=== PATIENT | female | born 1995 | race Caucasian/White ===

== ENCOUNTER 2016-09-25 17:44 | Emergency (ER) | payer SELFPAY ==
[2016-09-25 18:11] VITALS: BP 131/73
--- NOTE | 2016-09-25 19:20 | ERNOTE ---
ENT HPI Date of Service: 09/25/16 Presenting Symptoms: other - sore throat Time Seen by Provider: 09/25/16 18:56 Source: patient Exam Limitations: no limitations - Immun/Allergies/Home Medications Immunizations: IMMUNIZATION HX Immunizations Up to Date Yes History of Influenza Vaccine Yes Hx Pneumococcal Vaccination No Allergies/Adverse Reactions: Allergies Allergy/AdvReac Type Severity Reaction Status Date / Time calamine Allergy Verified 09/25/16 18:11 Home Medications: HOME MEDICATIONS Azithromycin [Zithromax] 500 mg PO NOW #6 tab 09/25/16 [Last Taken Unknown] Etonogestrel [Nexplanon] 68 mg SQ DAILY 09/25/16 [Last Taken Unknown] - History of Present Illness Narrative: Patient presents to the ED for sore throat, congestion and ear fullness. She relates that she has been sick for a little over 2 days. Fever. Sent home from work. No trouble breathing. Has not seen anyone else for it. hurts to swallow. No rash. Severity: Present: moderate ENT Location: Present: ear (R), throat Modifying Factors - Improves: Reports: nothing Modifying Factors - Worsens: Reports: nothing Associated Symptoms - ENT: Reports: fever, sore throat, nasal congestion/ drainage. Denies: poor fluid intake, voice change, drooling Prior Treament: Denies: recently seen Review of Systems - Review of Systems Constitutional: Present: fever ENT: Present: sore throat Respiratory: Absent: shortness of breath Cardiology: Absent: chest pain Gastrointestinal/Abdominal: Absent: abdominal pain - Patient's Past Medical History Patient History - Medical: No pertinent hx Patient History - Cardiac/Respiratory: No pertinent hx Patient History - Cancer: No Hx of Cancer Patient History - Surgical Procedures: No surgical history Patient History - Other: None - Social History Living Situations: home Smoking Status: Current every day smoker Alcohol Use: none Drug Use: none - Immunizations Immunizations Up to Date: Yes Hx Pneumococcal Vaccination: No History of Influenza Vaccine: Yes Physical Exam - Physical Exam General Appearance: Present: alert, no apparent distress, other - well hydrated , non-toxic, no distress. Eye Exam: Normal inspection: bilateral, PERRL: bilateral Ears, Nose, Throat: Present: abnormal TM (R), pharyngeal erythema, tonsillar exudate, other - No evidenceof MANAGER ADMINISTRATIVE SERVICES, RPA or epiglottitis.. Absent: pharyngeal swelling, dry mucous membranes Respiratory: Present: no respiratory distress, no accessory muscle use, lungs clear. Absent: respiratory distress Cardiovascular/Chest: Present: regular rate, rhythm Gastrointestinal/Abdominal: Present: normal bowel sounds, nontender, nondistended, soft Back Exam: Present: normal range of motion Extremity Exam: Present: normal inspection Neurological Exam: Present: alert, normal mood/affect, no motor/sensory deficits , head of sales and marketing II-XII nml as tested Skin Exam: Absent: skin rash ED Progress - Results and Orders Patient's Lab Results:: I have reviewed the patient's lab results. - Vital Signs Patient's Vital Signs:: I have reviewed the patient's vital signs. Vital Signs: Vital Signs 09/25/16 18:06 Temperature 36.5 C Pulse Rate 107 H Respiratory 18 Rate Blood Pressure 131/73 O2 Sat by Pulse 100 Oximetry - Progress/Reassessment Chief Complaint: Sore Throat Progress Note-Subjective: 09/25/16 19:17 Right OM by exam. Pharyngitis, non-strep. No MANAGER ADMINISTRATIVE SERVICES, RPA or epiglottitis. Stable , well hydrated, non-toxic, no distress. I discussed warning signs and reasons to return as well as the need for close f/u. Departure Clinical Impression: Otitis media, Pharyngitis - Departure Disposition: Home self-care Condition: Stable Instructions: Sore Throat Additional Instructions: Rest. Fluids. Tylenol, Ibuprofen. Follow-up with primary doctor wednesday for a re-check. Antibiotic as directed. Return for trouble breathing or swallowing or if your condition worsens or changes in any way. Prescriptions: Azithromycin [Zithromax] 500 mg PO NOW #6 tab
== END 2016-09-25 19:32 | disposition home or self-care (01) ==
LOC: ER 17:44
DX: H66.91 Otitis media, unspecified, right ear (principal); J02.9 Acute pharyngitis, unspecified; F17.210 Nicotine dependence, cigarettes, uncomplicated

== ENCOUNTER 2019-06-05 17:32 | Observation (INO) ==
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
[2019-06-05 18:10] LABS: Hematocrit 43.7 % (37.0-47.0); Hemoglobin 14.6 gm/dL (12.5-16.0); Mean Cell Volume 83.6 fl (78-100); Mean Corpuscular Hemoglobin 27.9 pg (27-31); Mean Corpuscular Hgb Conc 33.4 g/dl (32-36); Mean Platelet Volume 9.9 fl (8-12.5); Neutrophil # 3.9 K/mm3 (1.3-6.0); Neutrophil % 45.2 % (42-75.0); Platelet Count 265 K/mm3 (150-450); Red Blood Count 5.23 M/mm3 (4.2-5.4); Red Cell Distribution Width 15.2 % (11.5-14.0); White Blood Count 8.7 K/mm3 (4.0-10.5)
[2019-06-05 18:12] LABS: Urine Bilirubin Negative (NEGATIVE); Urine Blood Negative /ul (NEGATIVE); Urine Ketone Negative (NEGATIVE); Urine Nitrite Negative (NEGATIVE); Urine Protein Negative (NEGATIVE); Urine Specific Gravity <=1.005 SP.GR. (1.005-1.010); Urine Urobilinogen Normal (NORMAL)
[2019-06-05 18:16] LABS: Urine Appearance Clear (CLEAR); Urine Bacteria TRACE; Urine Color Colorless; Urine RBC None Seen /hpf (0-5); Urine WBC None Seen /hpf (0-5)
[2019-06-05 18:18] LABS: Cocaine Ur Negative (NEGATIVE); Urine Barbiturate Negative (NEGATIVE); Urine Benzodiazepines Negative (NEGATIVE); Urine Opiates Negative (NEGATIVE); Urine PCP Negative (NEGATIVE); Urine THC Negative (NEGATIVE)
[2019-06-05 18:27] LABS: ALT 29 U/L (19-67); AST 24 U/L (0-48); Albumin * 4.1 gm/dl (3.4-5.0); Alkaline Phosphatase * 110 U/L (50-170); Anion Gap 19.5 mmol/L (6.8-13.8); BUN/Creatinine Ratio 10.1 (9.0-21.6); Bilirubin, Total 0.5 mg/dL (0.0-1.1); Blood Urea Nitrogen 8 mg/dL (3-23); Carbon Dioxide 20.3 mmol/L (24-32.6); Chloride 107 mmol/L (97-106); Glucose * 118 mg/dL (70-110); Potassium 2.8 mmol/L (3.4-4.6); Salicylate 3.5 mg/dL (2.8-20.0); Sodium 144 mmol/L (132-142); Total Protein 8.2 gm/dL (6.2-8.2)
[2019-06-05 18:37] LABS: Ca. Corrected For Albumin 8.3 mg/dL (8.4-10.2); Calcium * 8.7 mg/dL (7.9-10.9)
[2019-06-05] MEDS ORDERED: LORazepam 2 MG/ML DISP.SYRIN IV ONE (19:01)
[2019-06-05] MEDS ORDERED: ONDANSETRON HCL/PF 2 MG/ML VIAL IV ONE (19:45)
[2019-06-05] MEDS: MULTIVIT INFUSN,ADULT 4,VIT K 10 ML, THIAMINE HCL 100 MG in NORMAL SALINE 1,000 ML IV SCH (19:52)
[2019-06-05] MEDS ORDERED: POTASSIUM CHLORIDE IN WATER 100 ML IV ONE (19:56)
[2019-06-05] MEDS ORDERED: LORazepam 2 MG/ML DISP.SYRIN IV PRN (20:55)
[2019-06-05] MEDS ORDERED: ONDANSETRON HCL/PF 2 MG/ML VIAL IV PRN (20:56)
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
[2019-06-05 22:23] LABS: Albumin * 3.5 gm/dl (3.4-5.0); Anion Gap 13.6 mmol/L (6.8-13.8); BUN/Creatinine Ratio 9.6 (9.0-21.6); Bilirubin, Total 0.4 mg/dL (0.0-1.1); Ca. Corrected For Albumin 8.2 mg/dL (8.4-10.2); Calcium * 8.1 mg/dL (7.9-10.9); Carbon Dioxide 26.1 mmol/L (24-32.6); Potassium 3.7 mmol/L (3.4-4.6); Salicylate 3.4 mg/dL (2.8-20.0); Total Protein 7.1 gm/dL (6.2-8.2)
[2019-06-06] MEDS: MULTIVIT INFUSN,ADULT 4,VIT K 10 ML, THIAMINE HCL 100 MG in NORMAL SALINE 1,000 ML IV SCH ×2 (02:55→10:13)
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
--- NOTE | 2019-06-06 12:48 | DS ---
(1) Alcohol intoxication Problem: Acute (2) Alcohol intoxication delirium Problem: Acute (3) Drug overdose Problem: Acute Qualifiers: Encounter type: initial encounter Injury intent: intentional self-harm Qualified Code(s): T50.902A - Poisoning by unspecified drugs, medicaments and biological substances, intentional self-harm, initial encounter Date of Discharge:: 06/06/19 Description of Stay: Mary Kate is a 23 yo female that was admitted due to acute alcohol intoxication, intentional overdose of multiple medications (aspirin, protonix, vitamin D, and Vitamin b12) in an attempt to self harm. This episode was precipitated by finding messages on her boyfriend's phone. She was admitted to the [facility] on direct monitoring with IV fluids. She had bloodwork that showed alcohol intoxication, but no other organic injury. Aspirin levels were low. Labs were rechecked and unchanged. She was initially extremely agitated and aggressive and ultimately required leather restraints to perform medical care. With IV ativan that was finally able to be given once she was restrained her behavior improved and she relaxed and the restraints were removed. She had no further episodes of aggression. She sobered and felt fine. She reported no suicidal thoughts. She believes it was all precipitated by the events and the alcohol. Psychiatry was consulted and interviewed her. She was safe for home discharge and does not require outpatient treatment for depression. No medication changes at this time. Procedures Performed: none Results and Findings: Lab Pending Results 06/05/19 18:00: Urine HCG, Qual Negative 06/05/19 18:00: Urine Color Colorless, Urine Appearance Clear, Urine pH 6.0, Ur Specific [place] <=1.005, Urine Protein Negative, Urine Glucose (UA) Negative, Urine Ketones Negative, Urine Blood Negative, Urine Nitrate Negative, Urine Bilirubin Negative, Urine Urobilinogen Normal, Ur Leukocyte Esterase Negative, Urine RBC None seen, Urine WBC None seen, Ur Epithelial Cells Trace, Urine Bacteria Trace, Urine Culture Comments No culture indicated 06/05/19 18:00: Urine Opiates Screen Negative, Barbiturate Screen Negative, Ur Phencyclidine Scrn Negative, Urine Amphetamine Negative, U Benzodiazepines Scrn Negative, Urine Cocaine Screen Negative, Urine Marijuana (THC) Negative 06/05/19 18:07: WBC 8.7, RBC 5.23, Hgb 14.6, Hct 43.7, MCV 83.6, MCH 27.9, MCHC 33.4, RDW 15.2 H, Plt Count 265, MPV 9.9, Immature Gran % (Auto) 0.10, Immature Gran # (Auto) 0.01, Neutrophils % 45.2, Lymphocytes % 45.9, Monocytes % 5.6, Eosinophils % 2.5, Basophils % 0.7, Nucleated RBC % 0.0, Neutrophils # 3.9, Lymphocytes # 3.99 H, Monocytes # 0.5, Eosinophils # 0.2, Absolute Basophils 0.1 06/05/19 18:07: Sodium 144 H, Plasma Sodium 144 H, Potassium 2.8 L, Chloride 107 H, Carbon Dioxide 20.3 L, Anion Gap 19.5 H, BUN 8, Creatinine 0.79, Est GFR (Non-Af Amer) 97 D, BUN/Creatinine Ratio 10.1, Random Glucose 118 H, Calcium 8.7, Calcium Adj for Albumin 8.3 L, Total Bilirubin 0.5, AST 24, ALT 29, Alkaline Phosphatase 110, Total Protein 8.2, Albumin 4.1, Salicylates 3.5, Acetaminophen Less than 0.2 L, Ethyl Alcohol 198.0 H 06/05/19 22:05: Acetaminophen Less than 0.2 L 06/05/19 22:05: Sodium 144 H, Plasma Sodium 144 H, Potassium 3.7 D, Chloride 108 H, Carbon Dioxide 26.1, Anion Gap 13.6, BUN 7, Creatinine 0.73, Est GFR (Non-Af Amer) 106, BUN/Creatinine Ratio 9.6, Random Glucose 93, Calcium 8.1, Calcium Adj for Albumin 8.2 L, Total Bilirubin 0.4, AST 21, ALT 27, Alkaline Phosphatase 93, Total Protein 7.1, Albumin 3.5, Salicylates 3.4, Ethyl Alcohol 116.0 H 06/06/19 03:04: Salicylates 2.9 Discharge Location: Home Disposition: Home self-care Condition: Good Discharge Activity: Activity as tolerated Discharge Diet: General/regular food Referrals: Coral Rosa DO [Primary Care Provider] - One Week Consultation Done:: Psychiatry: Nancy Cunha Problem Oriented Discharge Instructions to Patient/Family: Aspirin Overdose Complete Home Medications List: Complete Home Medication List: vitamin,calcium,etezuecj-qunf-fxujq acid tablet 1 tab PO DAILY 07/11/18 Cephalexin [Keflex] 500 mg PO BID 06/06/19
[2019-06-06 13:39] VITALS: BP 113/60
== END 2019-06-06 13:45 | disposition home or self-care (01) ==
LOC: ER 17:32 → SCU 19:42 → INTOOBSV 19:42 → SCU 20:30
PROVIDERS: ADMIT Family Medicine; ATTEND Family Medicine
CPT/HCPCS: 36415; 80053; 80307; 80320; 80329; 81001; 84703; 85025; 93005; 96365; 96366; 96367; 96375; 99285; G0378; G0480; G0481; J2405